=== PATIENT | male | born 1950 | race Hispanic/Latino ===

== ENCOUNTER 2018-01-26 06:52 | Day surgery (SDC) | payer OTHER ==
[2018-01-23 16:13] VITALS: BP 155/74
[2018-01-23 16:31] LABS: BASOPHILS % (AUTO) 0.7 % (0.0-5.0); EOSINOPHILS % (AUTO) 4.1 % (0.0-8.0); HEMATOCRIT 39.4 % (42-54); LYMPHOCYTES % (AUTO) 26.9 % (21.0-51.0); MEAN CORPUSCULAR HGB CONC 33.8 g/dL (32.0-36.0); MEAN CORPUSCULAR VOLUME 85.9 fL (79-99); MONOCYTES % (AUTO) 10.6 % (3.0-13.0); NEUTROPHILS % (AUTO) 57.7 % (40.0-77.0); NUCLEATED RED BLOOD CELLS 0.1 % (0.0-0.19); PLATELET COUNT (AUTO) 176 K/uL (130-400); RED BLOOD CELL COUNT(AUTO) 4.59 MIL/uL (4.50-6.20); RED CELL DISTRIBUTION WIDTH 14.5 % (11.0-15.5); WHITE BLOOD COUNT (AUTO) 7.6 K/uL (4.8-10.8)
[2018-01-23 16:51] LABS: CREATININE 1.4 mg/dL (0.5-1.5); POTASSIUM 4.2 mmol/L (3.5-5.1)
[2018-01-23 16:53] LABS: INR 0.93 (0.85-1.15); PARTIAL THROMBOPLASTIN TIME 27.1 SEC (26.3-35.5); PROTHROMBIN TIME 9.8 SEC (9.6-11.6)
[2018-01-26] VITALS (17 sets, daily range): BP systolic 97–138; BP diastolic 56–74
[~2018-01-26] VITALS: Ht 167.6 cm; Wt 104.2 kg
[~2018-01-26 06:52] MED LIST: CARB28DR OP; DORZ210OS OU; HYDR25TA PO; LISI40TA4 PO; METF500T6 PO; TIMO.5OS OU; TRAM50TA4 PO; XALA2.5OS OD; [UNRECOGNIZED DRUG - OTHER] OU
[2018-01-26] MEDS ORDERED: SODIUM CHLORIDE 0.9% 1000ML 1,000 ML IV ONE (07:16)
[2018-01-26] MEDS: CEFAZOLIN SODIUM 1 GM VIAL ONE ×2 (08:00→10:30)
[2018-01-26] MEDS ORDERED: BACITRACIN 28.4 GM OINT TP ONE (09:07)
[2018-01-26] MEDS ORDERED: BUPIVACAINE/PF 0.25% 30ML VIAL IJ ONE (09:08)
[2018-01-26] MEDS ORDERED: DEXAMETHASONE SOD PHOSPHATE 10MG/ML 1ML VIAL ONE (10:26)
[2018-01-26] MEDS ORDERED: LIDOCAINE PF 2% 5ML ABBOJECT ONE (10:27)
[2018-01-26] MEDS ORDERED: PROPOFOL 10 MG/ML 20ML VIAL IV ONE ×2 (10:27→10:53)
[2018-01-26] MEDS ORDERED: GLYCOPYRROLATE 0.2 MG/ML 5 ML VIAL ONE (10:27)
[2018-01-26] MEDS ORDERED: MIDAZOLAM HCL 1 MG/ML 2ML VIAL ONE (10:27)
[2018-01-26] MEDS ORDERED: FENTANYL CITRATE PF 50 MCG/1 ML 2ML VIAL ONE ×2 (10:27→10:49)
[2018-01-26] MEDS ORDERED: EPHEDRINE SULFATE 50 MG/ML AMPULE ONE (10:41)
[2018-01-26] MEDS ORDERED: MEPERIDINE-PF 25 MG/ML SYG ONE (11:46)
== END 2018-01-26 13:23 | disposition home or self-care (01) ==
LOC: DAH 06:52 → SUH 06:52
PROVIDERS: ATTEND Urology
DX: N47.1 Phimosis (principal); I10 Essential (primary) hypertension; E11.9 Type 2 diabetes mellitus without complications; E66.01 Morbid (severe) obesity due to excess calories; H40.89 Other specified glaucoma; M19.90 Unspecified osteoarthritis, unspecified site; E78.5 Hyperlipidemia, unspecified; Z79.84 Long term (current) use of oral hypoglycemic drugs; Z79.899 Other long term (current) drug therapy
CPT/HCPCS: 36415; 54150; 80048; 82948 ×2; 85025; 85610; 85730; 88304; 93005; A4218 ×2; A4600; A4606; J0690; J1100; J2001; J2175; J2250; J2704 ×2; J3010 ×2; J3490 ×3; J7030

== ENCOUNTER → 2020-05-14 | Outpatient (CLI) | payer OTHER ==
[~2020-05-14] MED LIST changes: -CARB28DR OP; +CYCL30DR OP; +METF-444 PO; -METF500T6 PO; +PRAV20TA4 PO
== END | disposition home or self-care (01) ==
LOC: RAH 13:28
PROVIDERS: ATTEND Podiatrist
DX: E11.51 Type 2 diabetes mellitus with diabetic peripheral angiopathy without gangrene (principal)
CPT/HCPCS: 93922

== ENCOUNTER 2023-09-24 12:10 | Inpatient (IN) | payer MEDICARE ==
[~2023-09-24] VITALS: Ht 167.6 cm; Wt 109.9 kg
[2023-09-24] VITALS (8 sets, daily range): BP systolic 115–139; BP diastolic 69–95; PULSE 82–115; RESP 18–37; O2SAT 96–98
[~2023-09-24 12:10] MED LIST changes: +ATOR10 PO; +CARV6.25 PO; -CYCL30DR OP; -DORZ210OS OU; +ENAL-87 PO; -HYDR25TA PO; -LISI40TA4 PO; +METO25TA6 PO; -PRAV20TA4 PO; -TIMO.5OS OU; -TRAM50TA4 PO; -XALA2.5OS OD; -[UNRECOGNIZED DRUG - OTHER] OU
[2023-09-24 12:31] LABS: BASOPHILS # (AUTO) 0.08 K/uL (0.00-0.20); BASOPHILS % (AUTO) 0.7 % (0.0-5.0); EOSINOPHILS % (AUTO) 4.3 % (0.0-8.0); IMMATURE GRANULOCYTE ABSOLUTE 0.04 K/uL (0-1); LYMPHOCYTES # (AUTO) 2.2 K/uL (1.0-4.8); LYMPHOCYTES % (AUTO) 18.7 % (21.0-51.0); MEAN CORPUSCULAR HEMOGLOBIN 27.8 pg (27.0-33.0); MEAN CORPUSCULAR HGB CONC 30.8 g/dL (32.0-36.0); MEAN CORPUSCULAR VOLUME 90.3 fL (79-99); MONOCYTES # (AUTO) 0.7 K/uL (0.1-1.0); MONOCYTES % (AUTO) 5.9 % (3.0-13.0); NEUTROPHILS # (AUTO) 8.2 K/uL (1.8-7.7); NEUTROPHILS % (AUTO) 70.1 % (40.0-77.0); PLATELET COUNT (AUTO) 262 K/uL (130-400); RED BLOOD CELL COUNT(AUTO) 5.54 MIL/uL (4.50-6.20); RED CELL DISTRIBUTION WIDTH 15.1 % (11.0-15.5); WHITE BLOOD COUNT (AUTO) 11.7 K/uL (4.8-10.8)
[2023-09-24 12:38] LABS: ABG BASE EXCESS -5.6 mmol/L (-2.0-3.0); ABG HCO3 20.4 mmol/L (21.0-28.0); ABG PCO2 42 mmHg (35-48); ABG PH 7.305 (7.35-7.450); PO2, ARTERIAL BG 71.7 mmHg (83.0-108.0); VENT MODE, BG BIPAP 12 (ROOM AIR)
[2023-09-24 12:39] LABS: CREATININE 1.3 mg/dL (0.5-1.5); POTASSIUM 4.6 mmol/L (3.5-5.1)
[2023-09-24 12:44] LABS: ALBUMIN 3.8 g/dL (3.5-5.0); BILIRUBIN,TOTAL 0.5 mg/dL (0.2-1.0); TOTAL PROTEIN, SERUM 8.5 g/dL (6.0-8.3)
[2023-09-24 12:55] LABS: INFLUENZA TYPE A Negative For Type A (NEGATIVE); INFLUENZA TYPE B Negative For Type B (NEGATIVE)
[2023-09-24 12:57] LABS: SARS-CoV-2, RNA, NAAT NEGATIVE SARS CoV-2 (NEGATIVE)
[2023-09-24 13:24] LABS: B-TYPE NATRIURETIC PEPTIDE 962 pg/mL (0-100)
[2023-09-24] MEDS ORDERED: IPRATROPIUM/ALBUTEROL SULFATE 3 ML SOLUTION IH ONE (13:30)
[2023-09-24] MEDS ORDERED: MORPHINE 4 MG SYG IVP ONE (13:30)
[2023-09-24] MEDS ORDERED: ONDANSETRON 4MG INJ IVP ONE (13:30)
[2023-09-24] MEDS ORDERED: ONDANSETRON 4MG INJ ONE (13:32)
[2023-09-24] MEDS ORDERED: MORPHINE 4 MG SYG ONE (13:32)
[2023-09-24] MEDS ORDERED: NITROGLYCERIN 1GM OINT 1 INCH/1GM TD ONE (14:00)
[2023-09-24] MEDS ORDERED: FUROSEMIDE 40MG VIAL IV ONE (14:00)
[2023-09-24] MEDS ORDERED: ONDANSETRON 4MG INJ IVP PRN (14:30)
[2023-09-24] MEDS ORDERED: ACETAMINOPHEN 325 MG TAB PO PRN (14:30)
[2023-09-24] MEDS: FUROSEMIDE 40MG VIAL IV SCH (15:00)
[2023-09-24] MEDS ORDERED: MAGNESIUM 2GM PREMIX 50ML 50 ML IV PRN (19:30)
[2023-09-24] MEDS ORDERED: AEC81 PO (19:52)
[2023-09-24] MEDS ORDERED: FURO40TA5 PO (19:52)
[2023-09-25] VITALS (10 sets, daily range): BP systolic 106–188; BP diastolic 57–71; PULSE 88–104; RESP 18–24; O2SAT 95–99
[2023-09-25] MEDS: FUROSEMIDE 40MG VIAL IV SCH ×2 (03:22→15:21)
[2023-09-25 04:48] LABS: BASOPHILS # (AUTO) 0.04 K/uL (0.00-0.20); BASOPHILS % (AUTO) 0.3 % (0.0-5.0); EOSINOPHILS # (AUTO) 0.16 K/uL (0.00-0.70); EOSINOPHILS % (AUTO) 1.4 % (0.0-8.0); HEMATOCRIT 43.1 % (42-54); IMMATURE GRANULOCYTE ABSOLUTE 0.05 K/uL (0-1); LYMPHOCYTES % (AUTO) 8.5 % (21.0-51.0); MEAN CORPUSCULAR HEMOGLOBIN 27.8 pg (27.0-33.0); MEAN CORPUSCULAR HGB CONC 30.6 g/dL (32.0-36.0); MEAN CORPUSCULAR VOLUME 90.7 fL (79-99); MONOCYTES # (AUTO) 0.8 K/uL (0.1-1.0); MONOCYTES % (AUTO) 7.2 % (3.0-13.0); NEUTROPHILS # (AUTO) 9.6 K/uL (1.8-7.7); NEUTROPHILS % (AUTO) 82.2 % (40.0-77.0); PLATELET COUNT (AUTO) 206 K/uL (130-400); RED BLOOD CELL COUNT(AUTO) 4.75 MIL/uL (4.50-6.20); RED CELL DISTRIBUTION WIDTH 14.8 % (11.0-15.5); WHITE BLOOD COUNT (AUTO) 11.6 K/uL (4.8-10.8)
[2023-09-25 04:52] LABS: HEMOGLOBIN A1C 6.2 % (4.0-6.0)
[2023-09-25 05:16] LABS: ALBUMIN 3.3 g/dL (3.5-5.0); BILIRUBIN,TOTAL 0.7 mg/dL (0.2-1.0); CREATININE 1.5 mg/dL (0.5-1.5); POTASSIUM 4.1 mmol/L (3.5-5.1); TOTAL PROTEIN, SERUM 7.5 g/dL (6.0-8.3)
[2023-09-25] MEDS: ASPIRIN 81MG CHEW TAB PO SCH (08:44)
[2023-09-25] MEDS: ENOXAPARIN SODIUM 40 MG/0.4 ML SYRINGE SQ SCH (08:47)
[2023-09-25] MEDS: FAMOTIDINE 20MG TAB PO SCH (19:48)
[2023-09-26] VITALS (8 sets, daily range): BP systolic 110–126; BP diastolic 65–83; PULSE 93–105; RESP 16–20; O2SAT 92–94
[2023-09-26] MEDS: FUROSEMIDE 40MG VIAL IV SCH ×2 (02:59→16:23)
[2023-09-26 04:39] LABS: ALBUMIN 3.3 g/dL (3.5-5.0); BILIRUBIN,TOTAL 0.4 mg/dL (0.2-1.0); CREATININE 1.4 mg/dL (0.5-1.5); MAGNESIUM 2.1 mg/dL (1.80-2.40); POTASSIUM 3.8 mmol/L (3.5-5.1); TOTAL PROTEIN, SERUM 7.6 g/dL (6.0-8.3)
[2023-09-26] MEDS: ASPIRIN 81MG CHEW TAB PO SCH (09:43)
[2023-09-26] MEDS: ENOXAPARIN SODIUM 40 MG/0.4 ML SYRINGE SQ SCH (09:43)
[2023-09-26] MEDS ORDERED: LACTULOSE 20 GM/30 ML UDCUP PO PRN (10:30)
[2023-09-26] MEDS: FAMOTIDINE 20MG TAB PO SCH (19:49)
[2023-09-27] VITALS (7 sets, daily range): BP systolic 108–128; BP diastolic 60–76; PULSE 68–103; RESP 16–20; O2SAT 95
[2023-09-27] MEDS: FUROSEMIDE 40MG VIAL IV SCH ×2 (02:18→14:47)
[2023-09-27 05:38] LABS: HEMATOCRIT 39.8 % (42-54); MEAN CORPUSCULAR HEMOGLOBIN 28.2 pg (27.0-33.0); MEAN CORPUSCULAR HGB CONC 31.2 g/dL (32.0-36.0); MEAN CORPUSCULAR VOLUME 90.7 fL (79-99); RED BLOOD CELL COUNT(AUTO) 4.39 MIL/uL (4.50-6.20); RED CELL DISTRIBUTION WIDTH 14.6 % (11.0-15.5); WHITE BLOOD COUNT (AUTO) 8.7 K/uL (4.8-10.8)
[2023-09-27 05:52] LABS: CREATININE 1.1 mg/dL (0.5-1.5); MAGNESIUM 1.8 mg/dL (1.80-2.40); POTASSIUM 3.5 mmol/L (3.5-5.1)
[2023-09-27] MEDS ORDERED: REGADENOSON 0.4 MG/5 ML PF SYG IVP SCH (08:11)
[2023-09-27] MEDS: ENALAPRIL MALEATE 5 MG TAB PO SCH (10:59)
[2023-09-27] MEDS: METOPROLOL TARTRATE 25 MG TAB PO SCH ×2 (11:00→19:46)
[2023-09-27] MEDS: ASPIRIN 81MG CHEW TAB PO SCH (11:00)
[2023-09-27] MEDS: ENOXAPARIN SODIUM 40 MG/0.4 ML SYRINGE SQ SCH (11:01)
[2023-09-27] MEDS: FAMOTIDINE 20MG TAB PO SCH (19:46)
[2023-09-27] MEDS ORDERED: ATORVASTATIN 20 MG TABLET PO SCH (21:00)
[2023-09-27] MEDS: FUROSEMIDE 20 MG TABLET PO SCH (23:23)
[2023-09-28] VITALS: BP 96/47; PULSE 84; RESP 20
[2023-09-28 04:00] VITALS: BP 101/54; PULSE 97; RESP 20
[2023-09-28 06:17] VITALS: PULSE 96; RESP 18; O2SAT 96
[2023-09-28 08:00] VITALS: BP 123/60; PULSE 66; RESP 21; O2SAT 95
[2023-09-28] MEDS: FUROSEMIDE 20 MG TABLET PO SCH (09:44)
[2023-09-28] MEDS: ASPIRIN 81MG CHEW TAB PO SCH (09:45)
[2023-09-28] MEDS: ENALAPRIL MALEATE 5 MG TAB PO SCH (09:45)
[2023-09-28] MEDS: METOPROLOL TARTRATE 25 MG TAB PO SCH (09:46)
[2023-09-28] MEDS: ENOXAPARIN SODIUM 40 MG/0.4 ML SYRINGE SQ SCH (09:47)
[2023-09-28 12:00] VITALS: BP 96/55; PULSE 90; RESP 22
[2023-09-28] MEDS ORDERED: ATOR20TA PO (15:11)
== END 2023-09-28 16:00 | disposition home or self-care (01) | DRG 291 ==
LOC: EDH 12:10 → EDHIP 14:07 → 4DH 17:45
PROVIDERS: ADMIT Internal Medicine Infectious Disease; ATTEND Internal Medicine Infectious Disease
PROC: 5A09357 Assistance with Respiratory Ventilation, Less than 24 Consecutive Hours, Continuous Positive Airway Pressure (ICD-10-PCS; principal; 2023-09-24)
PROC: 4A02XM4 Measurement of Cardiac Total Activity, External Approach (ICD-10-PCS; 2023-09-27)
PROC: 3E033HZ Introduction of Radioactive Substance into Peripheral Vein, Percutaneous Approach (ICD-10-PCS; 2023-09-27)
DX: I11.0 Hypertensive heart disease with heart failure (principal); I50.43 Acute on chronic combined systolic (congestive) and diastolic (congestive) heart failure; J96.01 Acute respiratory failure with hypoxia; I16.1 Hypertensive emergency; I16.0 Hypertensive urgency; Z20.822 Contact with and (suspected) exposure to COVID-19; E66.01 Morbid (severe) obesity due to excess calories; E11.9 Type 2 diabetes mellitus without complications; E78.5 Hyperlipidemia, unspecified; I25.10 Atherosclerotic heart disease of native coronary artery without angina pectoris; I49.3 Ventricular premature depolarization; E66.9 Obesity, unspecified; J44.9 Chronic obstructive pulmonary disease, unspecified; Z83.3 Family history of diabetes mellitus; Z87.442 Personal history of urinary calculi; Z95.1 Presence of aortocoronary bypass graft; Z68.39 Body mass index [BMI] 39.0-39.9, adult; Z79.84 Long term (current) use of oral hypoglycemic drugs
CPT/HCPCS: 36415; 36600; 71045; 78452; 80048; 80053; 82803; 82948; 83036; 83605; 83735; 83880; 84484; 85025; 85027; 87040; 87635; 87804; 93005; 93017; 94640; 94660; 96374; 99291; A9500; C9803; G0378; J1650; J1940; J2270; J2405; J2785; J3475